=== PATIENT | male | born 1940 | race Asian ===

== ENCOUNTER 2017-04-13 17:03 | Inpatient (IN) | payer MEDICARE, OTHER ==
[~2017-04-13] VITALS: Ht 172.7 cm; Wt 87.5 kg
[2017-04-13 19:00] VITALS: BP 148/58
[2017-04-13] MEDS ORDERED: DOCUSATE SODIUM 283 MG/5 ML MINI-ENEMA PR PRN (19:15)
[2017-04-13] MEDS ORDERED: ONDANSETRON HCL 4 MG TABLET PO PRN (19:15)
[2017-04-13] MEDS: SENNA 187 MG TABLET PO SCH ×2 (21:00→21:32)
[2017-04-13] MEDS: DOCUSATE SODIUM 100 MG CAPSULE PO SCH ×2 (21:00→21:32)
[2017-04-13] MEDS: SIMVASTATIN 40 MG TABLET PO SCH (21:32)
[2017-04-13 21:49] LABS: APPEARANCE,URINE CLOUDY (CLEAR); GLUCOSE, URINE (UA) NEGATIVE (NEGATIVE); KETONES,URINE NEGATIVE (NEGATIVE); LEUKOCYTE ESTERASE ,URINE NEGATIVE (NEGATIVE); OCCULT BLOOD,URINE SMALL (NEGATIVE); PH,URINE 5.5 (5.0-8.0); PROTEIN,URINE NEGATIVE (NEGATIVE)
[2017-04-13 21:51] LABS: ADD UA MICROSCOPIC YES
[2017-04-13 22:05] LABS: SQUAMOUS EPITHELIAL CELL,UR Few /LPF (None Seen)
[2017-04-13] MEDS ORDERED: PNEUMOCOCCAL VACCINE POLYVALENT 0.5 ML VIAL [PPSV23] IM ONE (22:45)
[2017-04-14 00:50] VITALS: BP 159/87
[2017-04-14 06:40] LABS: BASOPHILS # (AUTO) 0.07 K/uL (0.00-0.20); EOSINOPHILS # (AUTO) 0.17 K/uL (0.00-0.70); EOSINOPHILS % (AUTO) 2.64 % (1.0-6.0); HEMATOCRIT 38.2 % (41-53); HEMOGLOBIN 12.7 g/dL (13.5-17.5); LYMPHOCYTES # (AUTO) 1.8 K/uL (1.0-4.8); LYMPHOCYTES % (AUTO) 27.5 % (22.0-44.0); MEAN CORPUSCULAR HEMOGLOBIN 30.3 pg (26.0-34.0); MEAN CORPUSCULAR HGB CONC 33.3 G/dL (31.0-37.0); MEAN CORPUSCULAR VOLUME 91 fL (80-100); MONOCYTES # (AUTO) 0.6 K/uL (0.1-1.0); MONOCYTES % (AUTO) 9.1 % (2.0-9.0); NEUTROPHILS # (AUTO) 3.9 K/uL (1.8-7.7); NEUTROPHILS % (AUTO) 59.7 % (40.0-70.0); PLATELET COUNT (AUTO) 354 K/uL (150-450); RED CELL DISTRIBUTION WIDTH 13.8 % (11.5-14.5); WHITE BLOOD COUNT (AUTO) 6.5 K/uL (4.5-11.0)
[2017-04-14 07:00] LABS: ALANINE AMINOTRANSFERASE 22 U/L (12-78); ALBUMIN 3.6 g/dL (3.4-5.0); ANION GAP 8 mmol/L (8-16); ASPARTATE AMINOTRANSFERASE 30 U/L (15-37); BILIRUBIN,TOTAL 0.7 mg/dL (0.1-1.0); CARBON DIOXIDE 30 mmol/L (22-29); CHLORIDE 104 mmol/L (98-107); CREATININE 1.12 mg/dL (0.60-1.30); GLOMERULAR FILTR. RATE CALC > 60 mL/min (>60); POTASSIUM 3.5 mmol/L (3.5-5.1); SODIUM SERUM 142 mmol/L (136-145); TOTAL PROTEIN, SERUM 7.1 g/dL (6.4-8.2); UREA NITROGEN, BLOOD 12 mg/dL (7-18)
[2017-04-14 07:41] VITALS: BP 143/66
[2017-04-14] MEDS: DOCUSATE SODIUM 100 MG CAPSULE PO SCH ×3 (09:25→20:06)
[2017-04-14] MEDS: NICOTINE 21 MG/24 HOUR PATCH TD SCH (09:25)
[2017-04-14] MEDS: LOSARTAN POTASSIUM 25 MG TABLET PO SCH (09:26)
[2017-04-14] MEDS: AmLODIPine BESYLATE 10 MG TABLET PO SCH (09:26)
[2017-04-14] MEDS: CLOPIDOGREL BISULFATE 75 MG TABLET PO SCH (09:26)
[2017-04-14] MEDS: ALLOPURINOL 100 MG TABLET PO SCH (09:26)
[2017-04-14] MEDS: POTASSIUM CHLORIDE 8 MEQ ER TABLET PO SCH (09:26)
[2017-04-14 15:32] VITALS: BP 139/76
[2017-04-14] MEDS: SENNA 187 MG TABLET PO SCH ×2 (20:02→20:07)
[2017-04-14] MEDS: SIMVASTATIN 40 MG TABLET PO SCH (20:02)
[2017-04-15 04:30] VITALS: BP 127/74
[2017-04-15 07:40] VITALS: BP 132/71
[2017-04-15] MEDS: POTASSIUM CHLORIDE 8 MEQ ER TABLET PO SCH (08:13)
[2017-04-15] MEDS: AmLODIPine BESYLATE 10 MG TABLET PO SCH (08:13)
[2017-04-15] MEDS: LOSARTAN POTASSIUM 25 MG TABLET PO SCH (08:13)
[2017-04-15] MEDS: CLOPIDOGREL BISULFATE 75 MG TABLET PO SCH (08:13)
[2017-04-15] MEDS: ALLOPURINOL 100 MG TABLET PO SCH (08:14)
[2017-04-15] MEDS: DOCUSATE SODIUM 100 MG CAPSULE PO SCH ×2 (08:16→20:43)
[2017-04-15] MEDS: NICOTINE 21 MG/24 HOUR PATCH TD SCH (09:30)
[2017-04-15 19:13] VITALS: BP 112/65
[2017-04-15] MEDS: SIMVASTATIN 40 MG TABLET PO SCH (20:43)
[2017-04-15] MEDS: SENNA 187 MG TABLET PO SCH (20:43)
[2017-04-15 23:36] VITALS: BP 133/68
[2017-04-16] MEDS ORDERED: ATOR40TA28 PO (05:09)
[2017-04-16] MEDS ORDERED: ASA3 PO (05:09)
[2017-04-16] MEDS ORDERED: MULT-71 PO (05:09)
[2017-04-16] MEDS ORDERED: ALLO100T PO (05:09)
[2017-04-16] MEDS ORDERED: ASPI-12 PO (05:09)
[2017-04-16 07:08] VITALS: BP 132/72
[2017-04-16] MEDS: POTASSIUM CHLORIDE 8 MEQ ER TABLET PO SCH (08:02)
[2017-04-16] MEDS: CLOPIDOGREL BISULFATE 75 MG TABLET PO SCH (08:02)
[2017-04-16] MEDS: ALLOPURINOL 100 MG TABLET PO SCH (08:02)
[2017-04-16] MEDS: NICOTINE 21 MG/24 HOUR PATCH TD SCH (08:03)
[2017-04-16] MEDS: LOSARTAN POTASSIUM 25 MG TABLET PO SCH (08:03)
[2017-04-16] MEDS: AmLODIPine BESYLATE 10 MG TABLET PO SCH (08:03)
[2017-04-16] MEDS: DOCUSATE SODIUM 100 MG CAPSULE PO SCH ×2 (08:03→20:04)
[2017-04-16 15:00] VITALS: BP 115/71
[2017-04-16] MEDS: SIMVASTATIN 40 MG TABLET PO SCH (20:04)
[2017-04-16] MEDS: SENNA 187 MG TABLET PO SCH (20:04)
[2017-04-17 00:17] VITALS: BP 133/68
[2017-04-17 07:07] VITALS: BP 148/86
[2017-04-17] MEDS: DOCUSATE SODIUM 100 MG CAPSULE PO SCH ×2 (08:01→20:15)
[2017-04-17] MEDS: ALLOPURINOL 100 MG TABLET PO SCH (08:01)
[2017-04-17] MEDS: POTASSIUM CHLORIDE 8 MEQ ER TABLET PO SCH (08:01)
[2017-04-17] MEDS: AmLODIPine BESYLATE 10 MG TABLET PO SCH (08:01)
[2017-04-17] MEDS: LOSARTAN POTASSIUM 25 MG TABLET PO SCH (08:01)
[2017-04-17] MEDS: CLOPIDOGREL BISULFATE 75 MG TABLET PO SCH (08:01)
[2017-04-17] MEDS: NICOTINE 21 MG/24 HOUR PATCH TD SCH (08:02)
[2017-04-17 13:07] VITALS: BP 131/77
[2017-04-17 15:10] VITALS: BP 142/71
[2017-04-17] MEDS: SENNA 187 MG TABLET PO SCH (20:15)
[2017-04-17] MEDS: SIMVASTATIN 40 MG TABLET PO SCH (20:15)
[2017-04-18 00:39] VITALS: BP 121/73
[2017-04-18 07:30] VITALS: BP 147/79
[2017-04-18] MEDS: DOCUSATE SODIUM 100 MG CAPSULE PO SCH ×2 (09:06→20:12)
[2017-04-18] MEDS: AmLODIPine BESYLATE 10 MG TABLET PO SCH (09:06)
[2017-04-18] MEDS: ALLOPURINOL 100 MG TABLET PO SCH (09:06)
[2017-04-18] MEDS: CLOPIDOGREL BISULFATE 75 MG TABLET PO SCH (09:06)
[2017-04-18] MEDS: POTASSIUM CHLORIDE 8 MEQ ER TABLET PO SCH (09:06)
[2017-04-18] MEDS: LOSARTAN POTASSIUM 25 MG TABLET PO SCH (09:06)
[2017-04-18] MEDS: NICOTINE 21 MG/24 HOUR PATCH TD SCH (09:07)
[2017-04-18 11:56] VITALS: BP 120/62
[2017-04-18 15:00] VITALS: BP 130/72
[2017-04-18] MEDS: SIMVASTATIN 40 MG TABLET PO SCH (20:12)
[2017-04-18] MEDS: SENNA 187 MG TABLET PO SCH (20:12)
[2017-04-19 00:17] VITALS: BP 130/68
[2017-04-19 07:15] VITALS: BP 126/68
[2017-04-19] MEDS: POTASSIUM CHLORIDE 8 MEQ ER TABLET PO SCH (08:02)
[2017-04-19] MEDS: AmLODIPine BESYLATE 10 MG TABLET PO SCH (08:02)
[2017-04-19] MEDS: CLOPIDOGREL BISULFATE 75 MG TABLET PO SCH (08:02)
[2017-04-19] MEDS: LOSARTAN POTASSIUM 25 MG TABLET PO SCH (08:02)
[2017-04-19] MEDS: DOCUSATE SODIUM 100 MG CAPSULE PO SCH ×2 (08:02→20:05)
[2017-04-19] MEDS: ALLOPURINOL 100 MG TABLET PO SCH (08:02)
[2017-04-19] MEDS: NICOTINE 21 MG/24 HOUR PATCH TD SCH (08:03)
[2017-04-19 15:05] VITALS: BP 129/62
[2017-04-19] MEDS: SENNA 187 MG TABLET PO SCH (20:05)
[2017-04-19] MEDS: SIMVASTATIN 40 MG TABLET PO SCH (20:05)
[2017-04-20] VITALS: BP 133/71
[2017-04-20 07:37] VITALS: BP 149/85
[2017-04-20] MEDS: CLOPIDOGREL BISULFATE 75 MG TABLET PO SCH (09:18)
[2017-04-20] MEDS: ALLOPURINOL 100 MG TABLET PO SCH (09:18)
[2017-04-20] MEDS: AmLODIPine BESYLATE 10 MG TABLET PO SCH (09:18)
[2017-04-20] MEDS: DOCUSATE SODIUM 100 MG CAPSULE PO SCH ×2 (09:18→20:54)
[2017-04-20] MEDS: POTASSIUM CHLORIDE 8 MEQ ER TABLET PO SCH (09:18)
[2017-04-20] MEDS: LOSARTAN POTASSIUM 25 MG TABLET PO SCH (09:18)
[2017-04-20] MEDS: NICOTINE 14 MG/24 HOUR PATCH TD SCH (09:19)
[2017-04-20 15:58] VITALS: BP 104/64
[2017-04-20] MEDS: SIMVASTATIN 40 MG TABLET PO SCH (20:55)
[2017-04-20] MEDS: SENNA 187 MG TABLET PO SCH (20:55)
[2017-04-21] VITALS: BP 129/63
[2017-04-21 07:45] VITALS: BP 148/71
[2017-04-21] MEDS: POTASSIUM CHLORIDE 8 MEQ ER TABLET PO SCH (09:04)
[2017-04-21] MEDS: LOSARTAN POTASSIUM 25 MG TABLET PO SCH (09:04)
[2017-04-21] MEDS: NICOTINE 14 MG/24 HOUR PATCH TD SCH (09:04)
[2017-04-21] MEDS: AmLODIPine BESYLATE 10 MG TABLET PO SCH (09:04)
[2017-04-21] MEDS: DOCUSATE SODIUM 100 MG CAPSULE PO SCH ×2 (09:04→20:29)
[2017-04-21] MEDS: ALLOPURINOL 100 MG TABLET PO SCH (09:04)
[2017-04-21] MEDS: CLOPIDOGREL BISULFATE 75 MG TABLET PO SCH (09:04)
[2017-04-21 16:26] VITALS: BP 136/68
[2017-04-21] MEDS: SENNA 187 MG TABLET PO SCH (20:29)
[2017-04-21] MEDS: SIMVASTATIN 40 MG TABLET PO SCH (20:29)
[2017-04-22] VITALS: BP 115/68
[2017-04-22 07:00] VITALS: BP 128/68
[2017-04-22] MEDS: POTASSIUM CHLORIDE 8 MEQ ER TABLET PO SCH (08:17)
[2017-04-22] MEDS: AmLODIPine BESYLATE 10 MG TABLET PO SCH (08:17)
[2017-04-22] MEDS: ALLOPURINOL 100 MG TABLET PO SCH (08:17)
[2017-04-22] MEDS: CLOPIDOGREL BISULFATE 75 MG TABLET PO SCH (08:17)
[2017-04-22] MEDS: LOSARTAN POTASSIUM 25 MG TABLET PO SCH (08:18)
[2017-04-22] MEDS: NICOTINE 14 MG/24 HOUR PATCH TD SCH (08:18)
[2017-04-22] MEDS: DOCUSATE SODIUM 100 MG CAPSULE PO SCH ×2 (08:18→20:10)
[2017-04-22 15:00] VITALS: BP 125/73
[2017-04-22] MEDS: SENNA 187 MG TABLET PO SCH (20:10)
[2017-04-22] MEDS: SIMVASTATIN 40 MG TABLET PO SCH (20:10)
[2017-04-23 00:30] VITALS: BP 144/74
[2017-04-23 07:56] VITALS: BP 124/69
[2017-04-23] MEDS: POTASSIUM CHLORIDE 8 MEQ ER TABLET PO SCH (08:35)
[2017-04-23] MEDS: ALLOPURINOL 100 MG TABLET PO SCH (08:35)
[2017-04-23] MEDS: LOSARTAN POTASSIUM 25 MG TABLET PO SCH (08:35)
[2017-04-23] MEDS: AmLODIPine BESYLATE 10 MG TABLET PO SCH (08:35)
[2017-04-23] MEDS: DOCUSATE SODIUM 100 MG CAPSULE PO SCH ×2 (08:35→20:46)
[2017-04-23] MEDS: NICOTINE 14 MG/24 HOUR PATCH TD SCH (08:35)
[2017-04-23] MEDS: CLOPIDOGREL BISULFATE 75 MG TABLET PO SCH (08:35)
[2017-04-23] MEDS: ACETAMINOPHEN 325 MG TABLET PO PRN (11:46)
[2017-04-23 15:20] VITALS: BP 120/66
[2017-04-23] MEDS: SIMVASTATIN 40 MG TABLET PO SCH (20:46)
[2017-04-23] MEDS: SENNA 187 MG TABLET PO SCH (20:46)
[2017-04-23] MEDS ORDERED: CLOP75 PO (22:17)
[2017-04-23] MEDS ORDERED: SLOWK8 PO (22:22)
[2017-04-23] MEDS ORDERED: AMLO-512 PO (22:22)
[2017-04-23] MEDS ORDERED: LOSA25TA21 PO (22:22)
[2017-04-23] MEDS ORDERED: ALLO100T PO (22:22)
[2017-04-23] MEDS ORDERED: NICO14T TD (22:26)
[2017-04-23] MEDS ORDERED: DSS100 PO (22:26)
[2017-04-24 01:02] VITALS: BP 130/73
[2017-04-24 07:15] VITALS: BP 141/75
[2017-04-24] MEDS: CLOPIDOGREL BISULFATE 75 MG TABLET PO SCH (07:51)
[2017-04-24] MEDS: DOCUSATE SODIUM 100 MG CAPSULE PO SCH ×2 (07:51→20:40)
[2017-04-24] MEDS: AmLODIPine BESYLATE 10 MG TABLET PO SCH (07:51)
[2017-04-24] MEDS: LOSARTAN POTASSIUM 25 MG TABLET PO SCH (07:51)
[2017-04-24] MEDS: NICOTINE 14 MG/24 HOUR PATCH TD SCH (07:51)
[2017-04-24] MEDS: ALLOPURINOL 100 MG TABLET PO SCH (07:51)
[2017-04-24] MEDS: POTASSIUM CHLORIDE 8 MEQ ER TABLET PO SCH (07:51)
[2017-04-24 16:04] VITALS: BP 102/60
[2017-04-24] MEDS: SIMVASTATIN 40 MG TABLET PO SCH (20:40)
[2017-04-24] MEDS: SENNA 187 MG TABLET PO SCH (20:40)
[2017-04-25 00:28] VITALS: BP 120/68
[2017-04-25 07:05] VITALS: BP 118/75
[2017-04-25] MEDS: CLOPIDOGREL BISULFATE 75 MG TABLET PO SCH (08:15)
[2017-04-25] MEDS: DOCUSATE SODIUM 100 MG CAPSULE PO SCH (08:15)
[2017-04-25] MEDS: POTASSIUM CHLORIDE 8 MEQ ER TABLET PO SCH (08:15)
[2017-04-25] MEDS: LOSARTAN POTASSIUM 25 MG TABLET PO SCH (08:15)
[2017-04-25] MEDS: ALLOPURINOL 100 MG TABLET PO SCH (08:16)
[2017-04-25] MEDS: NICOTINE 14 MG/24 HOUR PATCH TD SCH (08:16)
[2017-04-25] MEDS: AmLODIPine BESYLATE 10 MG TABLET PO SCH (08:16)
[2017-04-25] MEDS ORDERED: SIMV-261 PO (08:42)
[2017-04-25] MEDS: ACETAMINOPHEN 325 MG TABLET PO PRN (10:56)
== END 2017-04-25 13:00 | disposition home health service (06) | DRG 56 ==
LOC: 2WR 19:00
PROVIDERS: ADMIT Physical Medicine & Rehabilitation; ATTEND Physical Medicine & Rehabilitation
DX: I69.354 Hemiplegia and hemiparesis following cerebral infarction affecting left non-dominant side (principal); I63.9 Cerebral infarction, unspecified; I10 Essential (primary) hypertension; F17.200 Nicotine dependence, unspecified, uncomplicated; J44.9 Chronic obstructive pulmonary disease, unspecified; M10.9 Gout, unspecified; E78.5 Hyperlipidemia, unspecified; K21.9 Gastro-esophageal reflux disease without esophagitis; D63.8 Anemia in other chronic diseases classified elsewhere; I65.23 Occlusion and stenosis of bilateral carotid arteries; F17.210 Nicotine dependence, cigarettes, uncomplicated; K44.9 Diaphragmatic hernia without obstruction or gangrene; I69.322 Dysarthria following cerebral infarction; I69.393 Ataxia following cerebral infarction; M19.91 Primary osteoarthritis, unspecified site; M19.90 Unspecified osteoarthritis, unspecified site; Z79.01 Long term (current) use of anticoagulants; Z87.11 Personal history of peptic ulcer disease; Z79.899 Other long term (current) drug therapy
CPT/HCPCS: 87081; 90471; 92507; 92508; 92523; 97032; 97110; 97112; 97116; 97163; 97167; 97530; 97535; 99366